=== PATIENT | female | born 1960 | race Caucasian/White ===

== ENCOUNTER → 2016-05-29 | Outpatient (CLI) | payer BC ==
[~2016-05-29] MED LIST: ATOR-22 PO; CYM/30 PO; GLC/500 PO; HYDR-3419 PO; LANS30CA12 PO; LISD70CA PO; LSN20 PO; MONT1TAB3 PO; NITR1CAP33 PO; ONDA4TAB46 PO; OXYC1TAB3 PO; RANI150T3 PO; TAMS0.4C38 PO
--- NOTE | 2016-05-29 08:48 | DIAGNOSTIC IMAGING REPORT ---
CT OF THE ABDOMEN AND PELVIS WITHOUT CONTRAST CLINICAL HISTORY: Left flank pain. History of kidney stones. COMPARISON STUDY: CT of the abdomen and pelvis March 30, 2016. TECHNIQUE: Axial images of the abdomen and pelvis were obtained without IV contrast. Images were reviewed in the axial, sagittal, and coronal planes. FINDINGS: The distal left ureteral calculus shown on CT of March 30, 2016 has passed. There is no hydronephrosis. A punctate 2 mm left renal calculus is unchanged. There are equivocal punctate right renal calculi. There are no right ureteral calculi. Evaluation of the remainder of the abdomen and pelvis is suboptimal on this unenhanced exam. There is a small hiatal hernia. Unenhanced images of the liver, spleen, adrenal glands and pancreas are normal. There is no evidence for a bowel obstruction. Skeletal structures are unremarkable. IMPRESSION: 1. Interval passage of the left ureteral calculus shown on CT of March 30, 2016. 2. Punctate left renal calculus. Possible punctate right renal calculi. 3. Small hiatal hernia. Electronically signed by: Valeriano Palacios M.D. 05/29/2016 8:47 AM
== END | disposition home or self-care (01) ==
LOC: C.CTS 08:25
PROVIDERS: ATTEND Urology
DX: N20.0 Calculus of kidney (principal); R10.9 Unspecified abdominal pain; K44.9 Diaphragmatic hernia without obstruction or gangrene

== ENCOUNTER → 2016-11-14 | Outpatient (CLI) | payer BC ==
[~2016-11-14] MED LIST changes: -HYDR-3419 PO; -NITR1CAP33 PO
[2016-11-14 11:19] LABS: ESTIMATED AVERAGE GLUCOSE 134 mg/dl; HA1C FLAG Normal (Normal)
[2016-11-14 11:24] LABS: ALT/SGPT 24 U/L (12-78); BLOOD UREA NITROGEN 14 mg/dl (7-18); BUN/CREATININE RATIO 14.9 (10-20); CARBON DIOXIDE 24 mmol/L (21-32); CHLORIDE 107 mmol/L (98-107); CREATININE 0.95 mg/dl (0.60-1.20); GLUCOSE 98 mg/dl (70-99); SODIUM 142 mmol/L (136-145)
[2016-11-14 11:27] LABS: AST/SGOT 10 U/L (15-37); CALCIUM 9.4 mg/dl (8.5-10.1)
== END | disposition home or self-care (01) ==
LOC: C.LABBC 09:01
DX: I10 Essential (primary) hypertension (principal); R73.9 Hyperglycemia, unspecified; E78.5 Hyperlipidemia, unspecified

== ENCOUNTER → 2016-11-26 | Outpatient (CLI) | payer BC ==
--- NOTE | 2016-11-26 12:26 | DIAGNOSTIC IMAGING REPORT ---
KUB HISTORY: 56-year-old female presents for a follow-up exam. No reported symptoms or pain. History of renal calculi. COMPARISON: CT 05/29/2016 and 03/30/2016. TECHNIQUE: Single frontal view of the abdomen. FINDINGS: Left renal shadow is partially obscured by colonic stool. Previously described punctate left renal calculus is not definitively seen. No renal or ureteral calculi are identified. Phleboliths of the right hemipelvis are again seen. The bowel gas pattern is nonobstructive. No fracture. There is intervertebral disc space narrowing at L4-L5 and L5-S1. IMPRESSION: No renal calculi identified. Electronically signed by: Panda Owusu 11/26/2016 12:25 PM Dictated Date/Time: 11/26/2016 12:20 PM
== END | disposition home or self-care (01) ==
LOC: C.RADBC 12:03
PROVIDERS: ATTEND Urology
DX: N20.0 Calculus of kidney (principal)

== ENCOUNTER → 2016-12-04 | Outpatient (CLI) | payer BC ==
--- NOTE | 2016-12-05 07:38 | MAMMOGRAPHY REPORT ---
BILATERAL DIGITAL SCREENING MAMMOGRAM TOMOSYNTHESIS WITH CAD: 12/04/2016 CLINICAL HISTORY: Routine screening. TECHNIQUE: Breast tomosynthesis in addition to standard 2D mammography was performed. Current study was also evaluated with a Computer Aided Detection (CAD) system. COMPARISON: Comparison is made to exams dated: 11/30/2015 mammogram, 11/26/2014 mammogram, 11/25/2013 mamm ogram, 10/31/2012 mammogram, 10/26/2011 mammogram, and 10/24/2010 mammogram - [facility] . BREAST COMPOSITION: The tissue of both breasts is almost entirely fatty. FINDINGS: No suspicious mass, architectural distortion or cluster of microcalcifications is seen. IMPRESSION: ACR BI-RADS CATEGORY 1: NEGATIVE There is no mammographic evidence of malignancy. A 1 year screening mammogram is recommended. The pa tient will receive written notification of the results. Approximately 10% of breast cancers are not detected with mammography. A negative mammographic report should not delay biopsy if a clinically suggestive mass is present. Merna pugh/penanant:12/04/2016 16:44:11 Agent Producer: Alfonso CAVANAUGH(R)(M), [facility] letter sent: Normal 1/2 BI-RADS Code: ACR BI-RADS Category 1: Negative
== END | disposition home or self-care (01) ==
LOC: C.MAMM 08:06
PROVIDERS: ATTEND Obstetrics & Gynecology
DX: Z12.31 Encounter for screening mammogram for malignant neoplasm of breast (principal)

== ENCOUNTER → 2017-05-17 | Outpatient (CLI) | payer BC ==
[~2017-05-17] MED LIST changes: +LISI-726 PO; -LSN20 PO; +OXYC-90 PO; -OXYC1TAB3 PO
[2017-05-17 13:55] LABS: ALT/SGPT 21 U/L (12-78); AST/SGOT 12 U/L (15-37); BLOOD UREA NITROGEN 18 mg/dl (7-18); CALCIUM 8.9 mg/dl (8.5-10.1); CARBON DIOXIDE 29 mmol/L (21-32); CHOLESTEROL 132 mg/dl (0-200); CREATININE 0.75 mg/dl (0.60-1.20); GLUCOSE 108 mg/dl (70-99); POTASSIUM 3.9 mmol/L (3.5-5.1); SODIUM 141 mmol/L (136-145)
[2017-05-17 13:59] LABS: LDL CHOLESTEROL CALCULATED 56 mg/dl
[2017-05-18 06:54] LABS: HEMOGLOBIN A1C 6.1 % (4.5-5.6)
== END | disposition home or self-care (01) ==
LOC: C.LABBC 09:46
DX: E78.5 Hyperlipidemia, unspecified (principal); E55.9 Vitamin D deficiency, unspecified; I10 Essential (primary) hypertension; R73.9 Hyperglycemia, unspecified

== ENCOUNTER → 2017-09-12 | Outpatient (CLI) | payer OTHER ==
[~2017-09-12] MED LIST changes: -LISI-726 PO; +LSN20 PO; -OXYC-90 PO; +OXYC1TAB3 PO
--- NOTE | 2017-09-12 17:35 | ECHOCARDIOGRAM REPORT ---
*NOTICE TO RECEIVING REPUBLICAN AGENCY This information is strictly Confidential and protected under [place] law. [place] law prohibits you from making any further disclosure of this information unless further disclosure is expressly permitted by the written consent of the person to whom it pertains or is authorized by law. A general authorization for the release of medical or other information is not sufficient for this purpose. Hospital accepts no responsibility if the information is made available to any other person, INCLUDING THE PATIENT. Interpretation Summary * Name: BENJAMIN LANDRY Study Date: 09/12/2017 12:53 PM BP: 130/78 mmHg * Patient Location: [facility] HR: 91 * : 1960 (M/d/yyyy) Gender: Female Height: 65 in * Age: 56 yrs Ethnicity: [place] Weight: 200 lb * Ordering Physician: Manan Friedman * Referring Physician: Manan Friedman D.O. * Performed By: Agatha Goode RDCS * * Reason For Study: SYNCOPE, TACHYCARDIA, SYSTOLIC CLICK * BSA: 2.0 m2 * -- Conclusions -- * 1. Normal left ventricular size and systolic function. EF 60-65%. No regional wall motion abnormalities. No left ventricular hypertrophy. No significant diastolic dysfunction. * 2. No significant valvular abnormalities visualized. * 3. No prior study available for comparison. Procedure Details * A complete two-dimensional transthoracic echocardiogram was performed (2D, M-mode, Doppler and color flow Doppler). Left Ventricle * Normal left ventricular size and systolic function. EF 60-65%. No regional wall motion abnormalities. No left ventricular hypertrophy. No significant diastolic dysfunction. Right Ventricle * The right ventricle is normal in size and function. * The right ventricular systolic function is normal as assessed by tricuspid annular plane systolic excursion (TAPSE) (normal >1.5 cm). Atria * The left atrial size is normal. * Right atrial size is normal. * There is no evidence of atrial septal defect, but resolution does not allow assessment for a patent foramen ovale. Mitral Valve * The mitral valve leaflets appear normal. There is no evidence of stenosis, fluttering, or prolapse. * There is trace mitral regurgitation. Tricuspid Valve * The tricuspid valve is not well visualized, but is grossly normal. * There is no tricuspid stenosis. * Significant tricuspid regurgitation is absent. Aortic Valve * The aortic valve is trileaflet. * No hemodynamically significant valvular aortic stenosis. * No aortic regurgitation is present. Pulmonic Valve * The pulmonary valve is inadequately visualized, but the Doppler data is adequate for interpretation. * There is no pulmonic valvular stenosis. * There is no significant pulmonary regurgitation. Great Vessels * The aortic root is normal size. * Aortic arch of normal dimension. Pericardium/Pleural * There is no pericardial effusion. Great Vessels * IVC normal in size. Inspiratory collapse not well interrogated. MMode 2D Measurements and Calculations IVSd 1.0 cm IVSs 1.6 cm LVIDd 4.3 cm LVIDs 2.6 cm LVPWd 0.89 cm LVPWs 1.5 cm IVS/LVPW 1.2 FS 38.8 % EDV(Teich) 82.0 ml ESV(Teich) 25.0 ml EF(Teich) 69.5 % EDV(cubed) 78.3 ml ESV(cubed) 17.9 ml EF(cubed) 77.1 % % IVS thick 50.8 % % LVPW thick 66.7 % LV mass(C)d 135.2 grams LV mass(C)dI 68.3 grams/m\S\2 LV mass(C)s 138.2 grams LV mass(C)sI 69.9 grams/m\S\2 SV(Teich) 57.0 ml SI(Teich) 28.8 ml/m\S\2 SV(cubed) 60.3 ml SI(cubed) 30.5 ml/m\S\2 Ao root diam 3.2 cm Ao root area 7.8 cm\S\2 LA dimension 4.1 cm LA/Ao 1.3 LVAd ap4 26.9 cm\S\2 LVLd ap4 7.9 cm EDV(MOD-sp4) 78.9 ml EDV(sp4-el) 77.7 ml LVAs ap4 15.8 cm\S\2 LVLs ap4 7.0 cm ESV(MOD-sp4) 32.1 ml ESV(sp4-el) 30.5 ml EF(MOD-sp4) 59.4 % EF(sp4-el) 60.7 % LVAd ap2 31.7 cm\S\2 LVLd ap2 8.3 cm EDV(MOD-sp2) 101.8 ml EDV(sp2-el) 102.4 ml LVAs ap2 18.2 cm\S\2 LVLs ap2 7.1 cm ESV(MOD-sp2) 38.8 ml ESV(sp2-el) 39.4 ml EF(MOD-sp2) 61.8 % EF(sp2-el) 61.6 % LVLd %diff 5.3 % EDV(MOD-bp) 91.5 ml LVLs %diff 1.9 % ESV(MOD-bp) 35.5 ml EF(MOD-bp) 61.2 % SV(MOD-sp4) 46.8 ml SI(MOD-sp4) 23.7 ml/m\S\2 SV(MOD-sp2) 62.9 ml SI(MOD-sp2) 31.8 ml/m\S\2 SV(MOD-bp) 56.0 ml SI(MOD-bp) 28.3 ml/m\S\2 SV(sp4-el) 47.2 ml SI(sp4-el) 23.8 ml/m\S\2 SV(sp2-el) 63.1 ml SI(sp2-el) 31.9 ml/m\S\2 Doppler Measurements and Calculations MV E max ian 79.6 cm/sec MV A max ian 59.3 cm/sec MV E/A 1.3 MV dec time 0.20 sec Ao V2 max 131.0 cm/sec Ao max PG 6.9 mmHg Ao max PG (full) 2.9 mmHg LV V1 max PG 4.0 mmHg LV V1 max 99.7 cm/sec
== END | disposition home or self-care (01) ==
LOC: C.CPL 12:48
DX: R55 Syncope and collapse (principal); R00.0 Tachycardia, unspecified; R01.1 Cardiac murmur, unspecified